=== PATIENT | female | born 1995 | race Two or more races ===

== ENCOUNTER 2019-09-14 14:14 | Emergency (ER) | payer SELFPAY ==
[~2019-09-14] VITALS: Ht 154.9 cm; Wt 52.2 kg
[2019-09-14] MEDS ORDERED: METOCLOPRAMIDE 5 MG/ML, 2ML ONE (20:54)
[2019-09-14] MEDS ORDERED: SODIUM CHLORIDE 0.9% 1,000ML IVBOLUS ONE (21:00)
[2019-09-14] MEDS ORDERED: METOCLOPRAMIDE 5 MG/ML, 2ML IVPush ONE (21:00)
[2019-09-14 21:03] LABS: MICROSCOPIC INDICATED
[2019-09-14 21:06] LABS: BASOPHILS % (AUTO) 0 % (0-1); EOSINOPHILS % (AUTO) 0 % (1-7); LYMPHOCYTES # (AUTO) 0.59 x10^3/uL (1-3.4); LYMPHOCYTES % (AUTO) 8 % (22-44); MD NO; MEAN CORPUSCULAR HEMOGLOBIN 26.4 pg (27.0-34.8); MEAN CORPUSCULAR HGB CONC 33.5 g/dL (32.4-35.8); MEAN CORPUSCULAR VOLUME 78.9 fL (80-100); MEAN PLATELET VOLUME 8.2 fL (7.4-10.4); MONOCYTES # (AUTO) 0.52 x10^3/uL (0.2-0.8); MONOCYTES % (AUTO) 7 % (2-9); NEUTROPHILS # (AUTO) 6.21 x10^3/uL (1.8-6.8); NEUTROPHILS % (AUTO) 85 % (42-75); PLATELET COUNT 309 x10^3/uL (130-400); RED BLOOD COUNT 5.19 x10^6/uL (3.82-5.3); RED CELL DISTRIBUTION WIDTH 14.1 % (9.6-15.2)
[2019-09-14 21:11] LABS: CULTURE INDICATED? YES
[2019-09-14 21:15] VITALS: BP 98/57
--- NOTE | 2019-09-14 21:52 | NUR ---
Provider at bedside, new orders placed. RN to bedside, started IV per protocol and updated vital signs (see Vital signs flowsheet) Antiemetic medications given and intravenous fluids started. patient also provided with warm blanket. Aware of need for rest. Awaiting completion of fluids.
== END 2019-09-14 22:24 | disposition home or self-care (01) ==
LOC: ED 22:00
DX: O20.0 Threatened abortion (principal); O21.9 Vomiting of pregnancy, unspecified; R10.2 Pelvic and perineal pain; Z3A.08 8 weeks gestation of pregnancy; Z87.19 Personal history of other diseases of the digestive system
CPT/HCPCS: 36415; 76801; 81001; 84702; 85025; 86901; 87086; 87147; 96361; 96374; 99284; J2765; J7030

== ENCOUNTER 2020-04-08 15:27 | Outpatient (CLI) | payer MEDICAID ==
[~2020-04-08] VITALS: Ht 154.9 cm; Wt 68.1 kg
[2020-04-08 16:00] VITALS: BP 140/76
[2020-04-08] MEDS ORDERED: PREN1TAB10 PO (16:46)
== END 2020-04-08 17:02 | disposition home or self-care (01) ==
LOC: LDOP 15:27
PROVIDERS: ATTEND Student in an Organized Health Care Education/Training Program
DX: O46.93 Antepartum hemorrhage, unspecified, third trimester (principal); R42 Dizziness and giddiness; Z3A.37 37 weeks gestation of pregnancy
CPT/HCPCS: 59025; 84112

== ENCOUNTER 2020-04-12 21:36 | Inpatient (IN) | payer MEDICAID ==
[~2020-04-12] VITALS: Ht 154.9 cm; Wt 68.2 kg
[~2020-04-12 21:36] MED LIST: PREN1TAB10 PO
[2020-04-12 21:56] VITALS: BP 131/72
[2020-04-12] MEDS: LACTATED RINGERS 1,000 ML IV SCH (22:30)
[2020-04-12] MEDS: D5%-LACTATED RINGERS 1,000 ML IV SCH (22:49)
[2020-04-12] MEDS ORDERED: OXYTOCIN 30U/ 0.9% NaCL 500ML 500 ML IV PRN (22:49)
[2020-04-12] MEDS ORDERED: OXYTOCIN 30U/ 0.9% NaCL 500ML 500 ML IV ONE (22:49)
[2020-04-12] MEDS ORDERED: FENTANYL PF 100 MCG/2ML IV PRN (23:00)
[2020-04-12] MEDS ORDERED: TERBUTALINE 1 MG/ML, 1ML SQ PRN (23:00)
[2020-04-12] MEDS ORDERED: PENICILLIN GK 5,000,000 UNITS in DEXTROSE 5% 100 ML IVPB ONE (23:00)
[2020-04-12] MEDS ORDERED: FENTANYL PF 100 MCG/2ML IVPush PRN (23:00)
[2020-04-12] MEDS ORDERED: TERBUTALINE 1 MG/ML, 1ML IVPush PRN (23:00)
[2020-04-12] MEDS ORDERED: CALCIUM CARBONATE 500 MG TAB.CHEW PO PRN (23:00)
[2020-04-12] MEDS ORDERED: ONDANSETRON 2MG/ML, 2ML IVPush PRN (23:00)
[2020-04-12 23:14] LABS: BASOPHILS # (AUTO) 0.05 x10^3/uL (0-0.1); BASOPHILS % (AUTO) 1 % (0-1); EOSINOPHILS # (AUTO) 0.06 x10^3/uL (0-0.4); EOSINOPHILS % (AUTO) 1 % (1-7); LYMPHOCYTES # (AUTO) 1.63 x10^3/uL (1-3.4); LYMPHOCYTES % (AUTO) 15 % (22-44); MD NO; MEAN CORPUSCULAR HEMOGLOBIN 27.2 pg (27.0-34.8); MEAN CORPUSCULAR HGB CONC 33.4 g/dL (32.4-35.8); MEAN PLATELET VOLUME 9.1 fL (7.4-10.4); MONOCYTES # (AUTO) 0.69 x10^3/uL (0.2-0.8); MONOCYTES % (AUTO) 6 % (2-9); NEUTROPHILS # (AUTO) 8.35 x10^3/uL (1.8-6.8); NEUTROPHILS % (AUTO) 78 % (42-75); PLATELET COUNT 236 x10^3/uL (130-400); RED CELL DISTRIBUTION WIDTH 14.5 % (9.6-15.2)
[2020-04-12 23:34] LABS: MICROSCOPIC INDICATED
[2020-04-13 00:02] LABS: CREATININE,URINE RANDOM 82.5 mg/dL
[2020-04-13 00:35] LABS: ALBUMIN 2.6 g/dL (3.4-5.0); ANION GAP 11 mmol/L (5-15); CALCIUM 8.4 mg/dL (8.5-10.1); CHLORIDE 109 mmol/L (98-107)
[2020-04-13 00:39] LABS: ALANINE AMINOTRANSFERASE 22 U/L (12-78); ALKALINE PHOSPHATASE 226 U/L (45-117); BILIRUBIN,TOTAL 0.2 mg/dL (0.2-1.0); CREATININE 0.75 mg/dL (0.55-1.02); TOTAL PROTEIN 6.5 g/dL (6.4-8.2)
[2020-04-13] MEDS ORDERED: OXYTOCIN 30U/ 0.9% NaCL 500ML 0 ML ONE (00:56)
[2020-04-13] MEDS ORDERED: NEWBORN KIT ONE ×2 (00:56→23:50)
[2020-04-13] MEDS: PENICILLIN GK 2,500,000 UNITS in DEXTROSE 5% 100 ML IVPB SCH ×6 (03:34→20:52)
[2020-04-13] MEDS: LACTATED RINGERS 1,000 ML IV SCH (13:31)
[2020-04-13] MEDS ORDERED: FENTANYL PF 100 MCG/2ML ONE ×4 (19:36→22:45)
[2020-04-13] MEDS: D5%-LACTATED RINGERS 1,000 ML IV SCH (20:00)
[2020-04-13] MEDS ORDERED: FENTANYL/BUPIV./NS/PF 250 ML EPIDCONT ONE ×2 (20:08→20:09)
[2020-04-13] MEDS ORDERED: BUPIVACAINE 0.25% ONE (20:08)
[2020-04-13] MEDS ORDERED: FENTANYL/BUPIV./NS/PF 250 ML EPIDCONT SCH (20:15)
[2020-04-13] MEDS ORDERED: LACTATED RINGERS 1,000 ML IV SCH (20:15)
[2020-04-13] MEDS ORDERED: LACTATED RINGERS 1,000 ML IVBOLUS PRN (20:30)
[2020-04-13] MEDS ORDERED: NALOXONE 0.4 MG/ML, 1ML IVPush PRN (20:30)
[2020-04-13] MEDS ORDERED: EPHEDRINE 50 MG/ML, 1ML IVPush PRN ×2 (20:30→23:00)
[2020-04-13] MEDS ORDERED: EPHEDRINE 50 MG/ML, 1ML ONE ×2 (21:33→22:44)
[2020-04-13] MEDS ORDERED: D5%-LACTATED RINGERS 1,000 ML IV SCH (22:07)
[2020-04-13] MEDS ORDERED: METOCLOPRAMIDE 5 MG/ML, 2ML ONE (22:32)
[2020-04-13] MEDS ORDERED: OXYTOCIN 30U/ 0.9% NaCL 500ML 500 ML ONE (22:33)
[2020-04-13] MEDS ORDERED: SODIUM CITRATE/CITRIC ACID 30 ML UDC ONE (22:33)
[2020-04-13] MEDS ORDERED: PROPOFOL 10 MG/ML, 20ML ONE (22:44)
[2020-04-13] MEDS ORDERED: PHENYLEPHRINE 10 MG/ML ONE (22:44)
[2020-04-13] MEDS ORDERED: KETOROLAC 30 MG/1 ML ONE (22:44)
[2020-04-13] MEDS ORDERED: OXYTOCIN 10 UNITS/ML, 1ML ONE (22:44)
[2020-04-13] MEDS ORDERED: SUCCINYLCHOLINE 20 MG/ML, 10ML ONE (22:44)
[2020-04-13] MEDS ORDERED: DEXAMETHASONE 4 MG/ML, 1ML ONE (22:44)
[2020-04-13] MEDS ORDERED: ONDANSETRON 2MG/ML, 2ML ONE (22:44)
[2020-04-13] MEDS ORDERED: CEFAZOLIN 1,000 MG ONE (22:44)
[2020-04-13] MEDS ORDERED: OXYcodone 5 MG/5 ML ORAL.SOL UDC PO PRN (23:00)
[2020-04-13] MEDS ORDERED: ALBUTEROL SULFATE 2.5 MG/3 ML NPPB PRN (23:00)
[2020-04-13] MEDS ORDERED: ONDANSETRON 2MG/ML, 2ML IVPush PRN (23:00)
[2020-04-13] MEDS ORDERED: METOPROLOL 1 MG/ML, 5ML IV PRN (23:00)
[2020-04-13] MEDS ORDERED: FENTANYL PF 100 MCG/2ML IV PRN (23:00)
[2020-04-13] MEDS ORDERED: MIDAZOLAM 1 MG/ML, 2ML IV PRN (23:00)
[2020-04-13] MEDS ORDERED: AZITHROMYCIN 500 MG in SODIUM CHLORIDE 0.9% 250 ML IV ONE (23:00)
[2020-04-13] MEDS ORDERED: MEPERIDINE/PF 25MG/0.5ML IVPush PRN (23:00)
[2020-04-13] MEDS ORDERED: PROMETHAZINE 25 MG/ML, 1ML IV PRN (23:00)
[2020-04-13] MEDS ORDERED: LABETALOL 5MG/ML, 20ML IV PRN (23:00)
[2020-04-13] MEDS ORDERED: HYDROcodone/APAP 7.5-325MG/15ML UDC PO PRN (23:00)
[2020-04-13] MEDS ORDERED: hydrALAzine 20 MG/ML, 1ML IV PRN (23:00)
[2020-04-13] MEDS ORDERED: SODIUM CITRATE/CITRIC ACID 30 ML UDC PO ONE (23:00)
[2020-04-13] MEDS ORDERED: HYDROmorphone 2 MG/ML, 1ML IVPush PRN (23:00)
[2020-04-13] MEDS ORDERED: METOCLOPRAMIDE 5 MG/ML, 2ML IV ONE (23:00)
[2020-04-13] MEDS ORDERED: OXYcodone/APAP 5/325MG TABLET PO PRN ×2 (23:30)
[2020-04-13] MEDS ORDERED: ACETAMINOPHEN 325 MG TABLET PO PRN (23:30)
[2020-04-13] MEDS ORDERED: ONDANSETRON 2MG/ML, 2ML IV PRN (23:30)
[2020-04-13] MEDS ORDERED: IBUPROFEN 600 MG TABLET PO PRN (23:30)
[2020-04-13] MEDS ORDERED: BISACODYL 10 MG SUPP PR PRN (23:30)
[2020-04-13] MEDS ORDERED: CARBOPROST TROMETHAMINE 250 MCG/ML, 1ML IM PRN (23:30)
[2020-04-13] MEDS ORDERED: MORPHINE SULFATE 4 MG/ML, 1ML IVPush PRN (23:30)
[2020-04-13] MEDS ORDERED: MISOPROSTOL 200 MCG TABLET PO PRN (23:30)
[2020-04-13] MEDS ORDERED: SIMETHICONE 80 MG CHEW TAB PO PRN (23:30)
[2020-04-13] MEDS ORDERED: IBUPROFEN 800 MG TABLET PO PRN (23:30)
[2020-04-13] MEDS: KETOROLAC 30 MG/1 ML IV SCH (23:30)
[2020-04-13] MEDS ORDERED: OXYcodone IR 5MG TABLET PO PRN (23:30)
[2020-04-13] MEDS ORDERED: GLYCERIN ADULT SUPP PR PRN (23:30)
[2020-04-13] MEDS ORDERED: METHYLERGONOVINE 0.2 MG/ML IM PRN (23:30)
[2020-04-13] MEDS ORDERED: METOCLOPRAMIDE 5 MG/ML, 2ML IV PRN (23:30)
[2020-04-13] MEDS ORDERED: morphine SULFATE/PF 1 MG/ML, 10ML ONE (23:49)
[2020-04-14] MEDS ORDERED: HYDROmorphone 2 MG/ML, 1ML ONE (01:21)
[2020-04-14 02:25] VITALS: BP 121/75
[2020-04-14] MEDS: LACTATED RINGERS 1,000 ML IV SCH ×7 (04:01→23:08)
[2020-04-14] MEDS: OXYTOCIN 30U/ 0.9% NaCL 500ML 500 ML IV SCH ×3 (04:01→19:08)
[2020-04-14] MEDS ORDERED: DIPHENHYDRAMINE 50 MG/ML, 1ML IV PRN (05:00)
[2020-04-14] MEDS ORDERED: ONDANSETRON 2MG/ML, 2ML IVPush PRN (05:00)
[2020-04-14] MEDS ORDERED: EPHEDRINE 50 MG/ML, 1ML IVPush PRN (05:00)
[2020-04-14] MEDS ORDERED: HYDROmorphone 1 MG/ML, 1ML INJ IVPush PRN (05:00)
[2020-04-14] MEDS ORDERED: OXYcodone/APAP 5/325MG TABLET PO PRN (05:00)
[2020-04-14] MEDS ORDERED: NALOXONE 0.4 MG/ML, 1ML IV PRN ×3 (05:00)
[2020-04-14] MEDS ORDERED: NO SEDATIVES, TRANQUILIZERS OR ANTIEMETICS XX SCH (05:00)
[2020-04-14] MEDS ORDERED: FENTANYL PF 100 MCG/2ML IVPush PRN (05:00)
[2020-04-14] MEDS: KETOROLAC 30 MG/1 ML IV SCH ×4 (06:39→21:24)
[2020-04-14 07:00] VITALS: BP 132/84
[2020-04-14 08:14] LABS: MEAN CORPUSCULAR HEMOGLOBIN 27.2 pg (27.0-34.8); MEAN PLATELET VOLUME 8.9 fL (7.4-10.4); PLATELET COUNT 195 x10^3/uL (130-400); RED BLOOD COUNT 3.66 x10^6/uL (3.82-5.3); RED CELL DISTRIBUTION WIDTH 14.6 % (9.6-15.2)
[2020-04-14] MEDS: PRENATAL VIT/IRON/FA 1 EACH TABLET PO SCH (08:17)
[2020-04-14] MEDS: DOCUSATE 100 MG CAPSULE PO PRN ×2 (08:17→21:22)
[2020-04-14 08:46] LABS: MD YES
[2020-04-14 08:47] LABS: <PLATELET ESTIMATE> ADEQUATE; <PLT MORPHOLOGY> NORMAL PLT MORPH; <RBC MORPHOLOGY> NORMAL; BAND#(MANUAL) 2.31 x10^3/uL; BANDS%(MANUAL) 11 % (0-7); LYMPH#(MANUAL) 0.42 x10^3/uL (1-3.4); LYMPHS% (MANUAL) 2 % (22-44); MONOS#(MANUAL) 0.42 x10^3/uL (0.3-2.7); MONOS% (MANUAL) 2 % (2-9); SEG#(MANUAL) 17.85 x10^3/uL (1.8-6.8); SEGS% (MANUAL) 85 % (42-75)
[2020-04-14 12:00] VITALS: BP 116/73
[2020-04-14 16:00] VITALS: BP 101/63
[2020-04-14 19:30] VITALS: BP 103/66
[2020-04-15] MEDS: KETOROLAC 30 MG/1 ML IV SCH ×2 (03:37→09:54)
[2020-04-15] MEDS: OXYTOCIN 30U/ 0.9% NaCL 500ML 500 ML IV SCH (05:08)
[2020-04-15] MEDS: LACTATED RINGERS 1,000 ML IV SCH ×2 (05:08→07:08)
[2020-04-15 07:30] VITALS: BP 100/65
[2020-04-15] MEDS: PRENATAL VIT/IRON/FA 1 EACH TABLET PO SCH (09:54)
[2020-04-15] MEDS: DOCUSATE 100 MG CAPSULE PO PRN (09:54)
[2020-04-15] MEDS ORDERED: OXYC-302 PO (10:23)
[2020-04-15] MEDS ORDERED: IBUP-1222 PO (10:23)
== END 2020-04-15 12:20 | disposition home or self-care (01) | DRG 788 ==
LOC: LDOP 21:36 → LDIP 23:02 → 2NW 04-14 02:04
PROVIDERS: ADMIT Student in an Organized Health Care Education/Training Program; ATTEND Student in an Organized Health Care Education/Training Program
PROC: 10H07YZ Insertion of Other Device into Products of Conception, Via Natural or Artificial Opening (ICD-10-PCS; principal; 2020-04-14)
PROC: 10D00Z1 Extraction of Products of Conception, Low, Open Approach (ICD-10-PCS; 2020-04-14)
DX: O62.2 Other uterine inertia (principal); Z37.0 Single live birth; Z3A.38 38 weeks gestation of pregnancy; O42.92 Full-term premature rupture of membranes, unspecified as to length of time between rupture and onset of labor
CPT/HCPCS: 36415; J7121; 80053; 81001; 82570; 84156; 84550; 85025; 86592; 86850; 86900; 87086; G0378; J0456; J0690; J1100; J1170; J1885; J2274; J2405; J2540; J2704; J3010; J3490; J0330; J2370; J2590; J2765; J7050; J7120

== ENCOUNTER 2020-04-19 08:54 | Emergency (ER) | payer MEDICAID ==
[~2020-04-19] VITALS: Ht 154.9 cm; Wt 63.6 kg
[~2020-04-19 08:54] MED LIST changes: +IBUP-1222 PO; +OXYC-302 PO
--- NOTE | 2020-04-19 09:20 | NUR ---
late entry for 0920: pt presents to ED 6 days post op c section. pt states site began to bleed through original dressing. pt also notes that since the operation, she has had intermittent fevers (subjective), blurred vision, headache and generalized weakness, pt was diagnosed with preeclampsia during this . EDMD Daniela informed. EDMD at bedside for initial assessment, original dressing removed and replaced with gauze by . pt has small bloody drainage from c section site, no s/sx cellulitis or infection to site. pt attached to bp and spo2 monitors, call light in reach, dressed in gown. father at bedside.
[2020-04-19] MEDS ORDERED: SODIUM CHLORIDE FLUSH 10ML SYR IVF ONE (09:30)
[2020-04-19 09:56] LABS: MEAN CORPUSCULAR HEMOGLOBIN 26.2 pg (27.0-34.8); MEAN CORPUSCULAR HGB CONC 31.6 g/dL (32.4-35.8); PLATELET COUNT 443 x10^3/uL (130-400); RED BLOOD COUNT 3.11 x10^6/uL (3.82-5.3); RED CELL DISTRIBUTION WIDTH 14.6 % (9.6-15.2)
[2020-04-19 10:00] LABS: ALBUMIN 2.1 g/dL (3.4-5.0); CALCIUM 8.1 mg/dL (8.5-10.1)
[2020-04-19 10:04] LABS: ALANINE AMINOTRANSFERASE 34 U/L (12-78); ALKALINE PHOSPHATASE 173 U/L (45-117); ANION GAP 9 mmol/L (5-15); BILIRUBIN,TOTAL 0.4 mg/dL (0.2-1.0); CHLORIDE 111 mmol/L (98-107); CREATININE 0.56 mg/dL (0.55-1.02); TOTAL PROTEIN 6.2 g/dL (6.4-8.2)
--- NOTE | 2020-04-19 10:20 | NUR ---
late entry for 1020: straight cath urine obtained, sterile technique maintained. sample walked to lab. pt tolerated well. c section dressing changed per MD Suarez order (EDMD had removed for exam) with gauze and tegaderm. site has small bloody drainage at this time, no increase since initial assessment.
[2020-04-19 10:27] LABS: BASOPHILS # (AUTO) 0.02 x10^3/uL (0-0.1); BASOPHILS % (AUTO) 0 % (0-1); EOSINOPHILS # (AUTO) 0.13 x10^3/uL (0-0.4); EOSINOPHILS % (AUTO) 1 % (1-7); LYMPHOCYTES # (AUTO) 1.07 x10^3/uL (1-3.4); LYMPHOCYTES % (AUTO) 9 % (22-44); MD SCAN; MONOCYTES # (AUTO) 0.89 x10^3/uL (0.2-0.8); MONOCYTES % (AUTO) 8 % (2-9); NEUTROPHILS # (AUTO) 9.84 x10^3/uL (1.8-6.8); NEUTROPHILS % (AUTO) 82 % (42-75)
[2020-04-19 10:34] LABS: MICROSCOPIC AUTO
--- NOTE | 2020-04-19 10:40 | NUR ---
pt collected for CT, nadn at transport.
[2020-04-19] MEDS ORDERED: OMNIPAQUE 350 MG/ML, 100ML BOTTLE ONE (10:47)
--- NOTE | 2020-04-19 11:00 | NUR ---
pt back from CT.
--- NOTE | 2020-04-19 11:13 | NUR ---
PT DECLINES RN OFFER TO PROVIDE BREAST PUMP SHE IS LACTATING, PT DENIES BREAST PAIN.
--- NOTE | 2020-04-19 11:16 | NUR ---
all results back, chart up for recheck, awaiting MD and dispo.
--- NOTE | 2020-04-19 12:23 | NUR ---
wm barrientos at bedside to explain results and poc after consulting obgyn. per MD, dressing to c section site is to be wet to dry (using gauze soaked in saline, covered by abd pads).
[2020-04-19 12:24] VITALS: BP 113/64
== END 2020-04-19 12:48 | disposition home or self-care (01) ==
LOC: ED 10:12
DX: O90.89 Other complications of the puerperium, not elsewhere classified (principal); S30.1XXA Contusion of abdominal wall, initial encounter; T81.30XA Disruption of wound, unspecified, initial encounter; X58.XXXA Exposure to other specified factors, initial encounter; Y93.89 Activity, other specified; Y92.89 Other specified places as the place of occurrence of the external cause; Y99.8 Other external cause status
CPT/HCPCS: 36415; 74177; 80053; 81001; 85025; 87086; 99285; Q9967

== ENCOUNTER 2020-04-29 11:21 | Emergency (ER) | payer MEDICAID ==
[~2020-04-29] VITALS: Ht 154.9 cm; Wt 57.3 kg
--- NOTE | 2020-04-29 11:32 | NUR ---
PAVITHRA ANTONY STUDENT, AT BS FOR EXAM. PT C/O SURGICAL SITE BLEEDING X 2 WEEKS, VARYING IN INTENSITY. C-SECT 04/13. WAS SEEN IN ED ON 04/19 FOR SIMILAR SX; RX FOR ANTIBIOTIC & PAIN MED. SAW OB ON SATURDAY, HAS PENDING APPT THIS COMING SATURDAY. PT HERE TO DAY DUE TO SWELLING AT SURGICAL SITE, CONCERNED ABOUT POSSIBLE INFECTION. DENIES N/V. REPORTS SOME BRIGHT RED BLOOD W/ BM'S; STRAINS TO HAVE BM. SLIGHT SWELLING TO RT END OF SUTURE LINE. STILL TAKING ANTIBIOTIC
[2020-04-29] MEDS ORDERED: CEPH-376 PO (11:41)
--- NOTE | 2020-04-29 11:45 | NUR ---
AMBULATORY TO & FROM [facility] W/OUT INCIDENT; GAIT STEADY. VOIDED SPECIMEN PROVIDED: CLEAR, YELLOW.
--- NOTE | 2020-04-29 11:49 | NUR ---
PT REPORTS RECENT BLOOD TESTS.
[2020-04-29 12:15] LABS: BASOPHILS # (AUTO) 0.06 x10^3/uL (0-0.1); BASOPHILS % (AUTO) 1 % (0-1); EOSINOPHILS # (AUTO) 0.07 x10^3/uL (0-0.4); EOSINOPHILS % (AUTO) 1 % (1-7); LYMPHOCYTES % (AUTO) 29 % (22-44); MD NO; MEAN CORPUSCULAR HEMOGLOBIN 26.3 pg (27.0-34.8); MEAN CORPUSCULAR HGB CONC 32.3 g/dL (32.4-35.8); MEAN CORPUSCULAR VOLUME 81.6 fL (80-100); MEAN PLATELET VOLUME 6.7 fL (7.4-10.4); MONOCYTES # (AUTO) 0.27 x10^3/uL (0.2-0.8); MONOCYTES % (AUTO) 5 % (2-9); NEUTROPHILS # (AUTO) 3.35 x10^3/uL (1.8-6.8); NEUTROPHILS % (AUTO) 64 % (42-75); PLATELET COUNT 746 x10^3/uL (130-400); RED BLOOD COUNT 4.17 x10^6/uL (3.82-5.3); RED CELL DISTRIBUTION WIDTH 15.5 % (9.6-15.2)
[2020-04-29 12:25] LABS: ALBUMIN 3.1 g/dL (3.4-5.0); ANION GAP 6 mmol/L (5-15); CALCIUM 8.8 mg/dL (8.5-10.1); CHLORIDE 110 mmol/L (98-107)
[2020-04-29 12:27] LABS: CREATININE 0.69 mg/dL (0.55-1.02)
[2020-04-29 12:38] LABS: MICROSCOPIC NOT IND
[2020-04-29 13:05] VITALS: BP 114/95
== END 2020-04-29 13:25 | disposition home or self-care (01) ==
LOC: ED 11:47
DX: S30.1XXA Contusion of abdominal wall, initial encounter (principal); K62.5 Hemorrhage of anus and rectum; R30.0 Dysuria; X58.XXXA Exposure to other specified factors, initial encounter; Y93.89 Activity, other specified; Y92.89 Other specified places as the place of occurrence of the external cause; Y99.8 Other external cause status
CPT/HCPCS: 36415; 80048; 81003; 82040; 85025; 99283

== ENCOUNTER 2021-03-27 10:59 | Inpatient (IN) | payer OTHER ==
[~2021-03-27] VITALS: Ht 154.9 cm; Wt 66.4 kg
[~2021-03-27 10:59] MED LIST changes: +CEPH-376 PO; -OXYC-302 PO; +OXYC1TAB14 PO
[2021-03-27 11:12] VITALS: BP 114/70
[2021-03-27 11:23] LABS: BASOPHILS % (AUTO) 1 % (0-1); EOSINOPHILS % (AUTO) 0 % (1-7); LYMPHOCYTES % (AUTO) 16 % (22-44); MEAN CORPUSCULAR HEMOGLOBIN 27.7 pg (27.0-34.8); MEAN CORPUSCULAR HGB CONC 33.9 g/dL (32.4-35.8); MEAN PLATELET VOLUME 8.4 fL (7.4-10.4); MONOCYTES % (AUTO) 7 % (2-9); NEUTROPHILS % (AUTO) 76 % (42-75); PLATELET COUNT 226 x10^3/uL (130-400); RED BLOOD COUNT 5.05 x10^6/uL (3.82-5.3); RED CELL DISTRIBUTION WIDTH 14.6 % (9.6-15.2)
[2021-03-27] MEDS ORDERED: PLEASE ENTER HEIGHT AND WEIGHT MC SCH (11:30)
[2021-03-27] MEDS ORDERED: METOCLOPRAMIDE 5 MG/ML, 2ML ONE (11:30)
[2021-03-27] MEDS ORDERED: LACTATED RINGERS 1,000 ML IVBOLUS ONE (11:30)
[2021-03-27] MEDS ORDERED: SODIUM CITRATE/CITRIC ACID 15 ML UDC ONE (11:30)
[2021-03-27] MEDS ORDERED: FENTANYL PF 100 MCG/2ML ONE (11:43)
[2021-03-27] MEDS ORDERED: MISOPROSTOL 200 MCG TABLET ONE (12:00)
[2021-03-27] MEDS ORDERED: CARBOPROST TROMETHAMINE 250 MCG/ML, 1ML IM PRN (12:00)
[2021-03-27] MEDS ORDERED: GLYCERIN ADULT SUPP PR PRN (12:00)
[2021-03-27] MEDS ORDERED: METOCLOPRAMIDE 5 MG/ML, 2ML IV PRN (12:00)
[2021-03-27] MEDS ORDERED: TRANEXAMIC ACID 1,000 MG in SODIUM CHLORIDE 0.9% 100 ML IVPB ONE (12:00)
[2021-03-27] MEDS ORDERED: IBUPROFEN 800 MG TABLET PO PRN (12:00)
[2021-03-27] MEDS ORDERED: KETOROLAC 30 MG/1 ML IM SCH (12:00)
[2021-03-27] MEDS ORDERED: IBUPROFEN 600 MG TABLET PO PRN (12:00)
[2021-03-27] MEDS ORDERED: ACETAMINOPHEN 325 MG TABLET PO PRN ×2 (12:00→14:00)
[2021-03-27] MEDS ORDERED: NEWBORN KIT ONE ×2 (12:00→12:33)
[2021-03-27] MEDS ORDERED: ONDANSETRON 2MG/ML, 2ML IV PRN (12:00)
[2021-03-27] MEDS ORDERED: OXYTOCIN 30U/ 0.9% NaCL 500ML 500 ML ONE (12:00)
[2021-03-27] MEDS ORDERED: BISACODYL 10 MG SUPP PR PRN (12:00)
[2021-03-27] MEDS ORDERED: METHYLERGONOVINE 0.2 MG/ML IM PRN (12:00)
[2021-03-27] MEDS ORDERED: MISOPROSTOL 200 MCG TABLET PO PRN (12:00)
[2021-03-27] MEDS ORDERED: MORPHINE SULFATE 4 MG/ML, 1ML IVPush PRN ×2 (12:00→18:00)
[2021-03-27] MEDS: LACTATED RINGERS 1,000 ML IV SCH ×4 (12:17→22:00)
[2021-03-27] MEDS ORDERED: EPHEDRINE 50 MG/ML, 1ML ONE (12:40)
[2021-03-27] MEDS ORDERED: CEFAZOLIN 1,000 MG ONE ×2 (12:41)
[2021-03-27] MEDS ORDERED: KETOROLAC 30 MG/1 ML ONE (12:41)
[2021-03-27] MEDS ORDERED: PHENYLEPHRINE 10 MG/ML ONE (12:41)
[2021-03-27] MEDS ORDERED: OXYTOCIN 10 UNITS/ML, 1ML ONE ×4 (12:41)
[2021-03-27] MEDS ORDERED: OXYcodone 5 MG/5 ML ORAL.SOL UDC PO PRN (14:00)
[2021-03-27] MEDS ORDERED: ONDANSETRON 2MG/ML, 2ML IVPush PRN (14:00)
[2021-03-27] MEDS ORDERED: HYDROmorphone 1 MG/ML, 1ML INJ IVPush PRN (14:00)
[2021-03-27] MEDS ORDERED: LABETALOL 5MG/ML, 20ML IV PRN (14:00)
[2021-03-27] MEDS ORDERED: EPHEDRINE 50 MG/ML, 1ML IVPush PRN (14:00)
[2021-03-27] MEDS ORDERED: DIPHENHYDRAMINE 50 MG/ML, 1ML IVPush PRN (14:00)
[2021-03-27] MEDS ORDERED: MEPERIDINE/PF 25MG/0.5ML IVPush PRN (14:00)
[2021-03-27] MEDS ORDERED: FENTANYL PF 100 MCG/2ML IV PRN (14:00)
[2021-03-27] MEDS: OXYTOCIN 30U/ 0.9% NaCL 500ML 500 ML IV SCH ×2 (15:00→22:00)
[2021-03-27] MEDS ORDERED: SODIUM CITRATE/CITRIC ACID 30 ML UDC PO ONE (15:00)
[2021-03-27] MEDS ORDERED: HYDROmorphone 2 MG/ML, 1ML ONE (15:02)
[2021-03-27 16:05] VITALS: BP 109/69
[2021-03-27] MEDS ORDERED: MEPERIDINE/PF 50 MG/ML IM ONE (19:30)
[2021-03-27] MEDS ORDERED: PROMETHAZINE 25 MG/ML, 1ML IM ONE (19:30)
[2021-03-27 20:00] VITALS: BP 115/73
[2021-03-27 20:34] LABS: BASOPHILS % (AUTO) 0 % (0-1); EOSINOPHILS % (AUTO) 0 % (1-7); LYMPHOCYTES % (AUTO) 12 % (22-44); MEAN CORPUSCULAR HEMOGLOBIN 27.5 pg (27.0-34.8); MEAN PLATELET VOLUME 8.7 fL (7.4-10.4); MONOCYTES % (AUTO) 6 % (2-9); NEUTROPHILS % (AUTO) 82 % (42-75); PLATELET COUNT 192 x10^3/uL (130-400); RED BLOOD COUNT 4.91 x10^6/uL (3.82-5.3); RED CELL DISTRIBUTION WIDTH 14.2 % (9.6-15.2)
[2021-03-27] MEDS: KETOROLAC 30 MG/1 ML IV SCH (21:13)
[2021-03-28 00:30] VITALS: BP 99/62
[2021-03-28] MEDS: KETOROLAC 30 MG/1 ML IV SCH ×4 (03:07→20:00)
[2021-03-28] MEDS: LACTATED RINGERS 1,000 ML IV SCH (04:00)
[2021-03-28 05:00] VITALS: BP 103/64
[2021-03-28] MEDS: OXYcodone IR 5MG TABLET PO PRN ×4 (05:03→20:00)
[2021-03-28 08:15] VITALS: BP 115/80
[2021-03-28] MEDS: DOCUSATE 100 MG CAPSULE PO PRN ×2 (08:30→20:01)
[2021-03-28] MEDS: SIMETHICONE 80 MG CHEW TAB PO PRN (08:30)
[2021-03-28] MEDS: PRENATAL VIT/IRON/FA 1 EACH TABLET PO SCH (08:31)
[2021-03-28 14:00] VITALS: BP 107/70
[2021-03-28 19:30] VITALS: BP 116/77
[2021-03-29] MEDS: KETOROLAC 30 MG/1 ML IV SCH ×3 (02:08→13:45)
[2021-03-29 07:55] VITALS: BP 105/64
[2021-03-29] MEDS: SIMETHICONE 80 MG CHEW TAB PO PRN (08:04)
[2021-03-29] MEDS: DOCUSATE 100 MG CAPSULE PO PRN (08:04)
[2021-03-29] MEDS: PRENATAL VIT/IRON/FA 1 EACH TABLET PO SCH (08:04)
[2021-03-29] MEDS: OXYcodone/APAP 5/325MG TABLET PO PRN ×2 (09:17→13:48)
[2021-03-29] MEDS ORDERED: IBUP-1222 PO (12:47)
[2021-03-29] MEDS ORDERED: OXYC1TAB14 PO (12:47)
== END 2021-03-29 14:13 | disposition home or self-care (01) | DRG 788 ==
LOC: LDIP 10:59 → 2NW 15:48
PROVIDERS: ADMIT Student in an Organized Health Care Education/Training Program; ATTEND Student in an Organized Health Care Education/Training Program
PROC: 10D00Z1 Extraction of Products of Conception, Low, Open Approach (ICD-10-PCS; principal; 2021-03-27)
DX: O34.211 Maternal care for low transverse scar from previous cesarean delivery (principal); O77.0 Labor and delivery complicated by meconium in amniotic fluid; Z37.0 Single live birth; Z3A.39 39 weeks gestation of pregnancy; Z20.822 Contact with and (suspected) exposure to COVID-19
CPT/HCPCS: 36415; 85025; 86592; 86850; 86900; 87635; G0378; J0690; J1885; J2175; J2405; J2550; J3010; J2270; J2370; J2590; J2765; J7120